=== PATIENT | female | born 1950 | race Two or more races ===

== ENCOUNTER 2019-05-22 23:37 | Emergency (ER) | payer OTHER ==
[~2019-05-22] VITALS: Ht 149.9 cm; Wt 55.3 kg
[2019-05-23 05:31] LABS: CALCIUM 9.2 mg/dL (8.5-10.1); CARBON DIOXIDE 29.8 mmol/L (21-32); CHLORIDE SERUM 106 mmol/L (98-107); CREATININE SERUM 0.8 mg/dL (0.6-1.0); GFR1 > 60 mL/min; GLUCOSE SERUM 90 mg/dL (74-106); SODIUM SERUM 140 mmol/L (136-145)
[2019-05-23 05:54] LABS: BASOPHIL % 1.5 % (0-2); PLATELET COUNT 197 x10^3mcL (130-400); RED CELL DISTRIBUTION WIDTH 13.9 % (11.5-14.5)
[2019-05-23 06:00] VITALS: BP 143/76
== END 2019-05-23 06:00 | disposition home or self-care (01) ==
LOC: ED 23:37
PROVIDERS: Emergency Medicine
DX: R51 Headache (principal); I10 Essential (primary) hypertension
CPT/HCPCS: 36415

== ENCOUNTER 2019-06-23 19:58 | Emergency (ER) | payer OTHER ==
[~2019-06-23] VITALS: Ht 144.8 cm; Wt 54.9 kg
[2019-06-23 20:11] VITALS: Ht 144.8 cm; Wt 54.9 kg
[2019-06-24 00:16] VITALS: BP 139/73
== END 2019-06-24 00:16 | disposition home or self-care (01) ==
LOC: ED 19:58
DX: R51 Headache (principal); R05 Cough; I10 Essential (primary) hypertension; H53.8 Other visual disturbances
CPT/HCPCS: J2765